=== PATIENT | female | born 1965 | race Caucasian/White ===

== ENCOUNTER 2016-12-22 08:48 | Emergency (ER) | payer OTHER ==
[~2016-12-22] VITALS: Ht 157.4 cm; Wt 54.4 kg
[~2016-12-22 08:48] MED LIST: ACETAMINOPHEN-H1 TA2 PO; ALPRAZOLAM0.25 M2 PO; AMLODIPINE BES2.5 MG PO; ATENOLOL50 M1 PO; BUPROPION75 MG PO; CIPRO250 MG PO; HYDROCHLOROTHIA25 M1 PO; Motrin,Rufen800 MG PO; OYSCO 500 + D 51 TAB PO
[2016-12-22 09:34] LABS: BILIRUBIN NEGATIVE (NEGATIVE); BLOOD TRACE-INTACT (NEGATIVE); CLARITY CLEAR (CLEAR); COLOR YELLOW (YELLOW); GLUCOSE NEGATIVE (NEGATIVE); KETONE NEGATIVE (NEGATIVE); LEUKO ESTERASE NEGATIVE (NEGATIVE); NITRITE NEGATIVE (NEGATIVE); PROTEIN NEGATIVE (NEGATIVE); UROBILINOGEN 0.2 E.U./dl (0.2-1.0)
[2016-12-22 09:44] LABS: BASO % 0.5 % (0.0-1.0); EOS # 0.2 10*3/uL (0.0-0.4); EOS % 2.4 % (1.0-4.0); HEMATOCRIT 45.5 % (37.0-47.0); HEMOGLOBIN 15.2 g/dl (12.0-16.0); LYMPH # 1.7 10*3/uL (1.3-4.4); LYMPH % 19.8 % (27.0-41.0); MEAN CELL VOLUME 98.3 fl (81.0-99.0); MEAN CORPUSCULAR HGB 32.8 pg (27.0-31.0); MEAN CORPUSCULAR HGB CONC 33.4 g/dl (33.0-37.0); MEAN PLATELET VOLUME 11.3 fl (9.6-12.3); MONO # 0.6 10*3/uL (0.1-1.0); MONO % 6.7 % (3.0-9.0); NEUT # 5.9 10*3/uL (2.3-7.9); NEUT % 70.5 % (47.0-73.0); PLATELET COUNT AUTOMATED 292 10*3/uL (130-400); RED BLOOD COUNT 4.63 10*6/uL (4.10-5.10); RED CELL DISTRI WIDTH 13.4 % (0-14.5); WHITE BLOOD COUNT 8.3 10*3/uL (4.8-10.8)
[2016-12-22 09:47] LABS: BACTERIA TRACE; URINE REFLEX COMMENT NO (NO)
[2016-12-22 09:53] LABS: INTERNATIONAL NORM RATIO 0.9 (2.0-3.5); PROTHROMBIN TIME 9.7 SECONDS (9.0-12.4)
[2016-12-22 10:01] LABS: ALBUMIN 3.9 gm/dl (3.1-4.5); ALKALINE PHOSPHATASE 107 U/L (45-117); BILIRUBIN, TOTAL 0.3 mg/dl (0.2-1.0); BUN 16 mg/dl (7-24); C-REACTIVE PROTEIN 0.91 MG/DL (0-0.3); CARBON DIOXIDE 29 mmol/L (21-32); CHLORIDE 107 mmol/L (98-107); CKMB 1.2 ng/ml (0.5-3.6); CPK 64 U/L (26-192); EST GLOM FILT AFRICAN AMERICAN > 60 ml/min; GLUCOSE 89 mg/dL (65-99); MAGNESIUM 2.2 mg/dL (1.5-2.1); POTASSIUM 4.5 mmol/L (3.5-5.1); SGOT/AST 16 IU/L (3-35); SGPT/ALT 15 U/L (12-78); SODIUM 141 mmol/L (136-145); TOTAL PROTEIN 7.8 gm/dL (6.4-8.2)
[2016-12-22 10:11] LABS: TROPONIN I < 0.015 ng/ml (<0.045)
== END 2016-12-22 11:55 | disposition home or self-care (01) ==
LOC: ED 08:48
PROVIDERS: Emergency Medicine
DX: R10.11 Right upper quadrant pain (principal); M54.5 Low back pain; M25.552 Pain in left hip; F17.200 Nicotine dependence, unspecified, uncomplicated; Z79.899 Other long term (current) drug therapy

== ENCOUNTER → 2017-01-31 | Outpatient (CLI) | payer OTHER | END | disposition home or self-care (01) | LOC: NM 07:00 | DX: M25.552 Pain in left hip (principal); R10.13 Epigastric pain; G24.9 Dystonia, unspecified; R11.0 Nausea ==

== ENCOUNTER → 2017-03-22 | Outpatient (CLI) | payer OTHER | END | disposition home or self-care (01) | LOC: MRI 10:24 | DX: M16.0 Bilateral primary osteoarthritis of hip (principal); D25.9 Leiomyoma of uterus, unspecified; M25.452 Effusion, left hip; M47.899 Other spondylosis, site unspecified ==

== ENCOUNTER → 2017-06-11 | Outpatient (CLI) | payer OTHER | END | disposition home or self-care (01) | LOC: RAD 13:03 | DX: M43.17 Spondylolisthesis, lumbosacral region (principal); M47.897 Other spondylosis, lumbosacral region; M48.07 Spinal stenosis, lumbosacral region ==

== ENCOUNTER → 2017-07-31 | Outpatient (CLI) | payer OTHER | END | disposition home or self-care (01) | LOC: MRI 07-12 09:00 | DX: M48.061 Spinal stenosis, lumbar region without neurogenic claudication (principal); M43.16 Spondylolisthesis, lumbar region; M43.18 Spondylolisthesis, sacral and sacrococcygeal region; M51.36 Other intervertebral disc degeneration, lumbar region ==

== ENCOUNTER → 2019-02-05 | Outpatient (CLI) | payer OTHER ==
[~2019-02-05] MED LIST changes: +NORCO 5-325 TA1 EACH PO
--- NOTE | ~2019-02-05 | EKG ---
[place], [place] ELECTROCARDIOGRAM REPORT NAME: FERNANDO FRAGA UNIT #: [id number] ROOM: DOCTOR: EPIPHANY DRAFT REPORT BIRTHDATE: [birth year] [facility] Test Date: 2019-02-07 Test Time: 08:45:51 Pat Name: FERNANDO FRAGA Department: Room: Gender: F Air Duct Mechanic: Merced Agudelo : 1965 Requested By: JOHANNY FLORES Order Number: [id number] Reading MD: Jc Delgado MD Measurements Intervals [place] Rate: 66 P: 55 TX: 141 QRS: 24 QRSD: 88 T: 40 QT: 432 QTc: 453 Interpretive Statements Sinus rhythm Baseline wander in lead(s) V4 No previous ECG available for comparison Electronically Signed On 02-07-2019 9:47:57 PDT by Jc Delgado MD CM:EKGRPT:ELECTROCARDIOGRAM REPORT [id number] JOHANNY GARCIA DRAFT REPORT JOHANNY FLORES MD
== END | disposition home or self-care (01) ==
LOC: US 07:04
DX: R07.9 Chest pain, unspecified (principal); R06.02 Shortness of breath; G24.9 Dystonia, unspecified; R10.13 Epigastric pain; K90.49 Malabsorption due to intolerance, not elsewhere classified

== ENCOUNTER → 2019-02-07 | Outpatient (CLI) | payer OTHER ==
[2019-02-07 09:17] LABS: BASO % 0.3 % (0.0-1.0); EOS # 0.1 10*3/uL (0.0-0.4); EOS % 1.4 % (1.0-4.0); HEMATOCRIT 48.7 % (37.0-47.0); HEMOGLOBIN 16.7 g/dl (12.0-16.0); LYMPH # 1.8 10*3/uL (1.3-4.4); LYMPH % 19.3 % (27.0-41.0); MEAN CELL VOLUME 100.8 fl (81.0-99.0); MEAN CORPUSCULAR HGB 34.6 pg (27.0-31.0); MEAN CORPUSCULAR HGB CONC 34.3 g/dl (33.0-37.0); MEAN PLATELET VOLUME 10.6 fl (9.6-12.3); MONO # 0.6 10*3/uL (0.1-1.0); MONO % 6.2 % (3.0-9.0); NEUT # 6.8 10*3/uL (2.3-7.9); NEUT % 72.5 % (47.0-73.0); PLATELET COUNT AUTOMATED 293 10*3/uL (130-400); RED BLOOD COUNT 4.83 10*6/uL (4.10-5.10); RED CELL DISTRI WIDTH 13.9 % (0-14.5); WHITE BLOOD COUNT 9.3 10*3/uL (4.8-10.8)
[2019-02-07 09:40] LABS: ALBUMIN 3.9 gm/dl (3.1-4.5); ALKALINE PHOSPHATASE 89 U/L (45-117); BUN 13 mg/dl (7-24); CHLORIDE 102 mmol/L (98-107); CHOLESTEROL 195 mg/dL (<200); CREATININE 0.99 mg/dL (0.55-1.02); HDL CHOLESTEROL 63 mg/dl (40-60); LDL CHOLESTEROL 110 mg/dL (9-159); POTASSIUM 4.6 mmol/L (3.5-5.1); SGOT/AST 17 IU/L (3-35); SGPT/ALT 19 U/L (12-78); SODIUM 136 mmol/L (136-145); TOTAL PROTEIN 7.7 gm/dL (6.4-8.2); TRIGLYCERIDES 109 mg/dl (<150); VLDL CHOLESTEROL 22 mg/dL (6-40)
[2019-02-07 10:15] LABS: VITAMIN D, 25-HYDROXY 38.6 ng/mL (30-100)
== END | disposition home or self-care (01) ==
LOC: NM 07:00 → LAB 07:01
PROVIDERS: Internal Medicine
DX: Z13.220 Encounter for screening for lipoid disorders (principal); Z13.1 Encounter for screening for diabetes mellitus; Z13.21 Encounter for screening for nutritional disorder; I10 Essential (primary) hypertension; E55.9 Vitamin D deficiency, unspecified; G24.9 Dystonia, unspecified; R10.13 Epigastric pain; R11.0 Nausea

== ENCOUNTER → 2019-02-27 | Day surgery (SDC) | payer OTHER ==
[2019-02-24 14:13] LABS: BASO % 0.5 % (0.0-1.0); EOS # 0.1 10*3/uL (0.0-0.4); EOS % 0.7 % (1.0-4.0); HEMATOCRIT 46.7 % (37.0-47.0); HEMOGLOBIN 15.7 g/dl (12.0-16.0); LYMPH # 1.9 10*3/uL (1.3-4.4); LYMPH % 22.5 % (27.0-41.0); MEAN CORPUSCULAR HGB 33.6 pg (27.0-31.0); MEAN CORPUSCULAR HGB CONC 33.6 g/dl (33.0-37.0); MEAN PLATELET VOLUME 10.4 fl (9.6-12.3); MONO # 0.6 10*3/uL (0.1-1.0); MONO % 6.9 % (3.0-9.0); NEUT # 5.8 10*3/uL (2.3-7.9); NEUT % 69.2 % (47.0-73.0); PLATELET COUNT AUTOMATED 305 10*3/uL (130-400); RED BLOOD COUNT 4.67 10*6/uL (4.10-5.10); RED CELL DISTRI WIDTH 13.7 % (0-14.5); WHITE BLOOD COUNT 8.3 10*3/uL (4.8-10.8)
[2019-02-24 14:16] LABS: BILIRUBIN NEGATIVE (NEGATIVE); BLOOD NEGATIVE (NEGATIVE); CLARITY CLEAR (CLEAR); COLOR YELLOW (YELLOW); GLUCOSE NEGATIVE (NEGATIVE); KETONE NEGATIVE (NEGATIVE); LEUKO ESTERASE NEGATIVE (NEGATIVE); NITRITE NEGATIVE (NEGATIVE); SPECIFIC GRAVITY <= 1.005 (1.005-1.030); UROBILINOGEN 0.2 E.U./dl (0.2-1.0)
[2019-02-24 14:32] LABS: BACTERIA 1+
[2019-02-24 14:41] LABS: BUN 13 mg/dl (7-24); CHLORIDE 100 mmol/L (98-107); CREATININE 1.02 mg/dL (0.55-1.02); POTASSIUM 4.5 mmol/L (3.5-5.1); SODIUM 136 mmol/L (136-145)
[2019-02-24 14:46] LABS: ACT PARTIAL THROMBO TIME 26.5 SECONDS (20.0-32.1); INTERNATIONAL NORM RATIO 0.9 (2.0-3.5)
[~2019-02-27] VITALS: Ht 157.4 cm; Wt 54.4 kg
--- NOTE | ~2019-02-27 | O ---
[place], [place] OPERATIVE NOTE NAME: FERNANDO FRAGA [facility] #: [id number] UNIT #: [id number] ROOM: DOCTOR: DAMIEN FOREMAN MD BIRTHDATE: [birth year] DOS: 02/27/2019 PREOPERATIVE DIAGNOSIS: Gallbladder mass. POSTOPERATIVE DIAGNOSIS: Gallbladder mass. PROCEDURE: Laparoscopic cholecystectomy. SURGEON: Damien Foreman MD SNUFF DRIER: SUMEET. ANESTHESIA: General with endotracheal intubation. INDICATIONS: This is a 54-year-old lady who was found to have a fundic mass on a screening ultrasound of the gallbladder. She is here for the above-mentioned procedure. The procedure and its complications were explained to the patient in detail preoperatively. Complications that were discussed included but were not limited to bleeding, infection, hematoma/seroma/abscess formation, prolonged postoperative pain, damage to lying vital structures, inadvertent injury to the common bile duct, incisional hernia formation and biloma formation, she agreed to proceed. DESCRIPTION OF PROCEDURE: After identifying the patient, the patient was brought to the operating suite and laid in the supine position. After induction of general anesthesia, timeout procedure was called and the parts were then painted and draped in the usual sterile fashion. An incision was made below the umbilicus in a transverse fashion. The skin and the subcutaneous tissue were incised in the line of the incision. The fascia was incised and 2 stay sutures with 2-0 Vicryl were taken on either side. The peritoneum was opened and a 12 mm [place] port was introduced and a pneumoperitoneum was created. Under direct vision, an epigastric incision of 10 mm and two 5 mm incisions were made in the right upper quadrant and appropriate size ports were introduced. The gallbladder was retracted superiorly and laterally. The cystic duct and the cystic artery were meticulously dissected until the critical view of safety was obtained. Thereafter, each of the structures were cut between the first and the second clip. The gallbladder was then removed from the bed of the gallbladder and placed in an EndoCatch bag. It was removed from the peritoneal cavity and sent for histopathological diagnosis. Hemostasis was achieved in the liver bed. After hemostasis was confirmed, the right upper quadrant and epigastric ports were removed and there was no bleeding seen. The umbilical port was also removed and the 2 stay sutures were tied together and an additional 0 Vicryl stitch was taken to close the fascial defect. The edges of the skin were infiltrated with 1% plain lidocaine and approximated with the help of 4-0 Vicryl in a subcuticular running fashion. Dressings were placed on all the four incisions. The patient tolerated the procedure well. She was extubated uneventfully and brought back to the recovery room in stable fashion. There were no complications. Dr. Damien Foreman, the attending surgeon, was present throughout the operating case. [place], [place] OPERATIVE NOTE NAME: FERNANDO FRAGA UNIT #: [id number] ROOM: DOCTOR: DAMIEN FOREMAN MD BIRTHDATE: [birth year] Damien Foreman MD CM:OPRECORD:OPERATIVE NOTE [id number] DAMIEN FOREMAN MD 02/27/19 1029 interface
[2019-02-27 07:00] VITALS: BP 152/91
[2019-02-27 09:45] VITALS: BP 128/80
[2019-02-27 10:00] VITALS: BP 125/78
[2019-02-27 10:15] VITALS: BP 120/76
[2019-02-27 10:30] VITALS: BP 106/67
[2019-02-27 10:45] VITALS: BP 110/71
== END | disposition home or self-care (01) ==
LOC: SDC 02-21 13:15
PROVIDERS: Surgery
DX: D13.5 Benign neoplasm of extrahepatic bile ducts (principal); K81.1 Chronic cholecystitis; F32.9 Major depressive disorder, single episode, unspecified; K21.9 Gastro-esophageal reflux disease without esophagitis; M19.90 Unspecified osteoarthritis, unspecified site; F10.21 Alcohol dependence, in remission; I25.10 Atherosclerotic heart disease of native coronary artery without angina pectoris; I10 Essential (primary) hypertension; F17.210 Nicotine dependence, cigarettes, uncomplicated; Z98.51 Tubal ligation status; Z79.899 Other long term (current) drug therapy; Z98.890 Other specified postprocedural states; Z82.49 Family history of ischemic heart disease and other diseases of the circulatory system

== ENCOUNTER → 2019-08-20 | Outpatient (CLI) | payer OTHER | END | disposition home or self-care (01) | LOC: RAD 01:30 | DX: M85.88 Other specified disorders of bone density and structure, other site (principal); F17.200 Nicotine dependence, unspecified, uncomplicated; Z78.0 Asymptomatic menopausal state ==

== ENCOUNTER → 2019-10-02 | Outpatient (CLI) | payer OTHER ==
[2019-10-02 14:57] LABS: BASO # 0.1 10*3/uL (0.0-0.1); BASO % 0.5 % (0.0-1.0); EOS # 0.1 10*3/uL (0.0-0.4); EOS % 1.5 % (1.0-4.0); HEMATOCRIT 43.2 % (37.0-47.0); HEMOGLOBIN 14.1 g/dl (12.0-16.0); LYMPH # 2.2 10*3/uL (1.3-4.4); MEAN CELL VOLUME 100.7 fl (81.0-99.0); MEAN CORPUSCULAR HGB 32.9 pg (27.0-31.0); MEAN CORPUSCULAR HGB CONC 32.6 g/dl (33.0-37.0); MONO # 0.7 10*3/uL (0.1-1.0); NEUT # 6.4 10*3/uL (2.3-7.9); NEUT % 67.7 % (47.0-73.0); PLATELET COUNT AUTOMATED 340 10*3/uL (130-400); RED BLOOD COUNT 4.29 10*6/uL (4.10-5.10); RED CELL DISTRI WIDTH 13.4 % (0-14.5); WHITE BLOOD COUNT 9.4 10*3/uL (4.8-10.8)
[2019-10-02 15:28] LABS: BUN 13 mg/dl (7-24); CHLORIDE 106 mmol/L (98-107); CHOLESTEROL 188 mg/dL (<200); CREATININE 0.86 mg/dL (0.55-1.02); HDL CHOLESTEROL 58 mg/dl (40-60); LDL CHOLESTEROL 99 mg/dL (9-159); POTASSIUM 4.6 mmol/L (3.5-5.1); SGOT/AST 15 IU/L (3-35); SGPT/ALT 46 U/L (12-78); SODIUM 138 mmol/L (136-145); TRIGLYCERIDES 154 mg/dl (<150); VLDL CHOLESTEROL 31 mg/dL (6-40)
[2019-10-02 15:34] LABS: ALKALINE PHOSPHATASE 128 U/L (45-117); FREE T4 1.17 ng/dl (0.76-1.46); TOTAL PROTEIN 7.7 gm/dL (6.4-8.2)
== END | disposition home or self-care (01) ==
LOC: MAMMO 09-03 11:00 → LAB 13:57 → MAMMO 14:00
PROVIDERS: Internal Medicine
DX: Z13.1 Encounter for screening for diabetes mellitus (principal); Z13.21 Encounter for screening for nutritional disorder; Z13.220 Encounter for screening for lipoid disorders; Z13.6 Encounter for screening for cardiovascular disorders; I10 Essential (primary) hypertension; D51.9 Vitamin B12 deficiency anemia, unspecified; E55.9 Vitamin D deficiency, unspecified

== ENCOUNTER 2020-06-29 11:11 | Emergency (ER) | payer OTHER ==
[~2020-06-29] VITALS: Ht 157.4 cm; Wt 54.4 kg
[2020-06-29] MEDS ORDERED: TYLENOL325 M1 PO (11:40)
[2020-06-29] MEDS ORDERED: MEDROL DOSEPAK4 MG PO (11:40)
[2020-06-29] MEDS ORDERED: CYCLOBENZAPRINE10 MG PO (11:40)
== END 2020-06-29 11:54 | disposition home or self-care (01) ==
LOC: ED 11:11
DX: M54.41 Lumbago with sciatica, right side (principal); I10 Essential (primary) hypertension; F17.200 Nicotine dependence, unspecified, uncomplicated; Z79.899 Other long term (current) drug therapy

== ENCOUNTER → 2020-10-01 | Outpatient (CLI) | payer OTHER ==
[~2020-10-01] MED LIST changes: +CYCLOBENZAPRINE10 MG PO; +MEDROL DOSEPAK4 MG PO; +TYLENOL325 M1 PO
== END | disposition home or self-care (01) ==
LOC: MRI 09:44
PROVIDERS: ATTEND Internal Medicine
DX: M54.5 Low back pain (principal); M25.551 Pain in right hip

== ENCOUNTER → 2020-10-21 | Outpatient (CLI) | payer OTHER | END | disposition home or self-care (01) | LOC: US 13:59 | PROVIDERS: ATTEND Internal Medicine | DX: I73.9 Peripheral vascular disease, unspecified (principal) ==

== ENCOUNTER → 2020-11-03 | Outpatient (CLI) | payer OTHER | END | disposition home or self-care (01) | LOC: MRI 08:44 | PROVIDERS: ATTEND Podiatrist Foot & Ankle Surgery | DX: R60.0 Localized edema (principal); Z96.89 Presence of other specified functional implants ==

== ENCOUNTER → 2021-02-11 | Outpatient (CLI) | payer OTHER | END | disposition home or self-care (01) | LOC: MRI 08:43 | PROVIDERS: ATTEND Podiatrist Foot & Ankle Surgery | DX: M19.072 Primary osteoarthritis, left ankle and foot (principal); M24.573 Contracture, unspecified ankle; M25.872 Other specified joint disorders, left ankle and foot; Z98.890 Other specified postprocedural states ==

== ENCOUNTER → 2021-04-05 | Outpatient (CLI) | payer OTHER ==
[~2021-04-05] MED LIST changes: +ASPIR-TRIN325 MG PO
== END | disposition home or self-care (01) ==
LOC: CARD 00:31
PROVIDERS: ATTEND Internal Medicine
DX: M19.072 Primary osteoarthritis, left ankle and foot (principal); M77.32 Calcaneal spur, left foot; M85.672 Other cyst of bone, left ankle and foot; R53.81 Other malaise; I10 Essential (primary) hypertension; M25.872 Other specified joint disorders, left ankle and foot; M77.8 Other enthesopathies, not elsewhere classified

== ENCOUNTER 2021-12-24 10:06 | Emergency (ER) | payer OTHER ==
[~2021-12-24] VITALS: Ht 157.4 cm; Wt 56.7 kg
[2021-12-24] MEDS ORDERED: CEPHALEXIN500 M1 PO (10:40)
== END 2021-12-24 10:48 | disposition home or self-care (01) ==
LOC: ED 10:06
DX: L03.115 Cellulitis of right lower limb (principal); Z79.82 Long term (current) use of aspirin; Z79.899 Other long term (current) drug therapy; Z98.51 Tubal ligation status; Z90.89 Acquired absence of other organs

== ENCOUNTER → 2022-01-02 | Outpatient (CLI) | payer OTHER ==
[~2022-01-02] MED LIST changes: +CEPHALEXIN500 M1 PO
== END | disposition home or self-care (01) ==
LOC: MRI 13:00
PROVIDERS: ATTEND Podiatrist Foot & Ankle Surgery
DX: S96.911A Strain of unspecified muscle and tendon at ankle and foot level, right foot, initial encounter (principal); M76.821 Posterior tibial tendinitis, right leg; X58.XXXA Exposure to other specified factors, initial encounter; Y93.89 Activity, other specified; Y92.89 Other specified places as the place of occurrence of the external cause; Y99.8 Other external cause status

== ENCOUNTER → 2022-02-09 | Outpatient (CLI) | payer OTHER | END | disposition home or self-care (01) | LOC: CT 02-06 13:00 | PROVIDERS: ATTEND Podiatrist Foot & Ankle Surgery | DX: M96.0 Pseudarthrosis after fusion or arthrodesis (principal); R22.41 Localized swelling, mass and lump, right lower limb ==

== ENCOUNTER 2022-08-15 09:44 | Emergency (ER) | payer OTHER ==
[~2022-08-15] VITALS: Ht 157.4 cm; Wt 54.4 kg
[2022-08-15] MEDS ORDERED: DOXEPIN25 MG PO (12:34)
== END 2022-08-15 12:40 | disposition home or self-care (01) ==
LOC: ED 09:44
DX: G47.00 Insomnia, unspecified (principal); F10.90 Alcohol use, unspecified, uncomplicated; Z98.890 Other specified postprocedural states

== ENCOUNTER → 2022-10-16 | Outpatient (CLI) | payer OTHER ==
[~2022-10-16] MED LIST changes: +DOXEPIN25 MG PO
== END | disposition home or self-care (01) ==
LOC: MAMMO 11:53
PROVIDERS: ATTEND Internal Medicine
DX: Z12.31 Encounter for screening mammogram for malignant neoplasm of breast (principal); R06.02 Shortness of breath

== ENCOUNTER → 2022-10-18 | Outpatient (CLI) | payer OTHER ==
[2022-10-18 09:51] LABS: BASO # 0.1 10*3/uL (0.0-0.1); BASO % 0.7 % (0.0-1.0); EOS # 0.2 10*3/uL (0.0-0.4); EOS % 2.7 % (1.0-4.0); HEMATOCRIT 45.8 % (37.0-47.0); LYMPH # 2.1 10*3/uL (1.3-4.4); LYMPH % 26.1 % (27.0-41.0); MEAN CELL VOLUME 96.4 fl (81.0-99.0); MEAN CORPUSCULAR HGB 32.2 pg (27.0-31.0); MEAN CORPUSCULAR HGB CONC 33.4 g/dl (33.0-37.0); MEAN PLATELET VOLUME 10.6 fl (9.6-12.3); MONO # 0.6 10*3/uL (0.1-1.0); NEUT # 5.2 10*3/uL (2.3-7.9); NEUT % 63.3 % (47.0-73.0); PLATELET COUNT AUTOMATED 334 10*3/uL (130-400); RED BLOOD COUNT 4.75 10*6/uL (4.10-5.10); RED CELL DISTRI WIDTH 13.2 % (0-14.5); WHITE BLOOD COUNT 8.2 10*3/uL (4.8-10.8)
[2022-10-18 10:18] LABS: ALKALINE PHOSPHATASE 106 U/L (46-116); BUN 16 mg/dl (9-23); CHLORIDE 102 mmol/L (98-107); CHOLESTEROL 228 mg/dL (<200); FREE T4 0.95 ng/dl (0.89-1.76); LDL CHOLESTEROL 133 mg/dL (9-159); POTASSIUM 4.3 mmol/L (3.4-5.1); SGPT/ALT 97 U/L (10-49); THYROID STIM HORMONE (HS) 3.459 uIU/ml (0.550-4.780); TOTAL PROTEIN 7.6 gm/dL (6.0-8.0); TRIGLYCERIDES 144 mg/dl (<150)
[2022-10-18 11:36] LABS: VITAMIN D, 25-HYDROXY 26.9 ng/mL (30-100)
== END | disposition home or self-care (01) ==
LOC: LAB 02:12
PROVIDERS: ATTEND Internal Medicine
DX: Z13.0 Encounter for screening for diseases of the blood and blood-forming organs and certain disorders involving the immune mechanism (principal); Z13.820 Encounter for screening for osteoporosis; Z13.1 Encounter for screening for diabetes mellitus; Z13.6 Encounter for screening for cardiovascular disorders; E55.9 Vitamin D deficiency, unspecified; Z13.21 Encounter for screening for nutritional disorder; Z13.220 Encounter for screening for lipoid disorders; Z13.228 Encounter for screening for other metabolic disorders; Z13.89 Encounter for screening for other disorder; Z13.9 Encounter for screening, unspecified; I10 Essential (primary) hypertension

== ENCOUNTER → 2022-11-24 | Outpatient (CLI) | payer MEDICAID ==
[2022-11-25 06:08] LABS: HBSAG Negative (Negative); HEP B CORE AB, IGM Negative (Negative); HEPATITIS C ANTIBODY Non Reactive (Non Reactive)
== END | disposition home or self-care (01) ==
LOC: LAB 00:36 → US 09:30 → LAB 09:30
PROVIDERS: ATTEND Internal Medicine
DX: B18.2 Chronic viral hepatitis C (principal); Z90.49 Acquired absence of other specified parts of digestive tract

== ENCOUNTER → 2023-10-23 | Outpatient (CLI) | payer MEDICAID | LOC: US 08:46 | PROVIDERS: ATTEND Internal Medicine Cardiovascular Disease | DX: I65.23 Occlusion and stenosis of bilateral carotid arteries (principal); I73.9 Peripheral vascular disease, unspecified; R09.89 Other specified symptoms and signs involving the circulatory and respiratory systems; I10 Essential (primary) hypertension; F17.200 Nicotine dependence, unspecified, uncomplicated ==

== ENCOUNTER → 2023-11-26 | Outpatient (CLI) | payer MEDICAID | LOC: CARD 10:30 | PROVIDERS: ATTEND Internal Medicine Cardiovascular Disease | DX: R01.1 Cardiac murmur, unspecified (principal) ==

== ENCOUNTER → 2024-01-04 | Outpatient (CLI) | payer MEDICAID ==
[2024-01-04 10:46] LABS: BASO % 0.5 % (0.0-1.0); EOS # 0.2 10*3/uL (0.0-0.4); EOS % 2.2 % (1.0-4.0); HEMATOCRIT 44.8 % (37.0-47.0); LYMPH % 22.3 % (27.0-41.0); MEAN CELL VOLUME 97.6 fl (81.0-99.0); MEAN CORPUSCULAR HGB CONC 32.8 g/dl (33.0-37.0); MEAN PLATELET VOLUME 10.1 fl (9.6-12.3); MONO # 0.6 10*3/uL (0.1-1.0); MONO % 7.1 % (3.0-9.0); NEUT # 5.9 10*3/uL (2.3-7.9); NEUT % 67.8 % (47.0-73.0); PLATELET COUNT AUTOMATED 352 10*3/uL (130-400); RED BLOOD COUNT 4.59 10*6/uL (4.10-5.10); RED CELL DISTRI WIDTH 12.9 % (0-14.5); WHITE BLOOD COUNT 8.8 10*3/uL (4.8-10.8)
[2024-01-04 11:14] LABS: VITAMIN D, 25-HYDROXY 36.2 ng/mL (30-100)
[2024-01-04 11:34] LABS: ALKALINE PHOSPHATASE 98 U/L (46-116); BUN 11 mg/dl (9-23); CHLORIDE 101 mmol/L (98-107); CHOLESTEROL 167 mg/dL (<200); CPK 72 U/L (34-171); FREE T4 1.04 ng/dl (0.89-1.76); LDL CHOLESTEROL 85 mg/dL (9-159); SGPT/ALT 16 U/L (5-49); TOTAL PROTEIN 7.2 gm/dL (6.0-8.0); TRIGLYCERIDES 131 mg/dl (<150)
== END | disposition home or self-care (01) ==
LOC: LAB 10:09
PROVIDERS: ATTEND Internal Medicine
DX: I10 Essential (primary) hypertension (principal); F51.01 Primary insomnia; I73.9 Peripheral vascular disease, unspecified; R07.9 Chest pain, unspecified

== ENCOUNTER → 2024-01-23 | Day surgery (SDC) | payer MEDICAID ==
[2024-01-18 13:18] VITALS: BP 141/69
[~2024-01-23] VITALS: Ht 157.4 cm; Wt 54.4 kg
[~2024-01-23] MED LIST changes: +BUPIVACAINE 0.5% 30 ML IV ONE; +Ketamine Hydrochloride 500 MG/10 ML VIAL IV ONE; +Ketorolac Tromethamine 30 MG/ML VIAL IV ONE; +LIPITOR20 MG PO; +Lactated Ringer's Solution 1,000 ML IV ONE; +Lactated Ringer's Solution 1,000 ML IV SCH; +Midazolam Hydrochloride 2 MG/2 ML VIAL IV ONE; +Midazolam Hydrochloride 2 MG/2 ML VIAL IV STA; +PROPOFOL 200 MG/20 ML VIAL IV ONE; +TRAMADOL HCL50 MG PO; +VIBRA-TAB100 MG PO; +XARELTO10 MG PO; +ceFAZolin sodium/sodium chlor 20 ML IV ONE
[2024-01-23 09:22] VITALS: BP 152/68
[2024-01-23 10:23] VITALS: BP 81/48
[2024-01-23 10:38] VITALS: BP 90/56
[2024-01-23 10:48] VITALS: BP 132/92
[2024-01-23 11:02] VITALS: BP 139/84
== END | disposition home or self-care (01) ==
LOC: SDC 01-18 14:00
PROVIDERS: ATTEND Podiatrist
DX: T84.84XA Pain due to internal orthopedic prosthetic devices, implants and grafts, initial encounter (principal); I10 Essential (primary) hypertension; E78.00 Pure hypercholesterolemia, unspecified; F17.210 Nicotine dependence, cigarettes, uncomplicated; F10.90 Alcohol use, unspecified, uncomplicated; F12.90 Cannabis use, unspecified, uncomplicated; Z90.49 Acquired absence of other specified parts of digestive tract; Z98.890 Other specified postprocedural states; Z79.82 Long term (current) use of aspirin; Z79.899 Other long term (current) drug therapy; X58.XXXA Exposure to other specified factors, initial encounter